=== PATIENT | female | born 1990 | race Caucasian/White ===

== ENCOUNTER 2023-12-12 01:32 | Inpatient (IN) ==
[2023-12-12] MEDS ORDERED: OXYTOCIN 30 UNITS/NSS 30 UNITS/500 ML BAG IV PRN (02:32)
[2023-12-12] MEDS ORDERED: LIDOCAINE 1% LOCAL 20 ML VIAL INFIL PRN (02:32)
[2023-12-12 03:18] LABS: Hematocrit (blood only) 33.2 % (37.0-47.0); Mean Corpuscular Hemoglobin 29.8 pg (25.0-34.0); Mean Corpuscular Hgb Conc 33.1 g/dL (32.0-36.0); Platelet Count 148 K/uL (130-400); RDW Coefficient of Variation 13.5 % (11.5-14.5); RDW Standard Deviation 44.8 fL (36.4-46.3); Red Blood Count 3.69 M/uL (4.20-5.40); White Blood Count 10.14 K/ul (4.8-10.8)
[2023-12-12] MEDS: LACTATED RINGER'S 1,000 ML IV PRN (06:09)
--- NOTE | 2023-12-12 06:53 | Anesthesiology Consultation ---
Date of Service December 12, 2023 Assessment & Plan Chart Review Chart Review: Acceptable Risk for Surgery Consults Requested none History Height/Weight Height: 5 ft 3 in Weight: 69.853 kg Allergies Allergy/AdvReac Type Severity Reaction Status Date / Time No Known Allergies Allergy Verified 12/12/23 01:53 Medications Home Medications Medication Instructions Recorded Confirmed Last Taken metoprolol tartrate 25 mg tablet 25 mg PO DAILY 12/12/23 12/12/23 12/11/23 [id number] 1 mg 1 tab PO DAILY 12/12/23 12/12/23 12/11/23 tablet Active Medications Generic Name Dose Route Start Last Admin Trade Name Freq PRN Reason Stop Dose Admin Lactated Ringer's 1,000 mls @ 125 mls/hr 12/12/23 02:32 12/12/23 06:09 Lr IV 12/14/23 02:31 999 mls/hr .Q8H PRN Administration L&D Protocol Protocol Past Medical History Medical History (Updated 12/12/23 @ 01:53 by Danica Helms RN) Heart palpitations Past Family History Family History Mother Thyroid disease Celiac disease Father Thyroid disease Denies family history of Ovarian cancer Prostate cancer Myocardial infarction Breast cancer Colorectal cancer Social History Smoking Status: Never smoker Do You Dip or Chew Tobacco: No Hx Alcohol Use: No Hx Substance Use: No Physical Exam Vital Signs Last Vital Signs Temp 36.6 C 12/12/23 06:20 Pulse 61 12/12/23 06:49 Resp 18 12/12/23 06:20 BP 122/66 12/12/23 06:21 Pulse Ox 99 12/12/23 06:49 O2 Del Method Room Air 12/12/23 01:58 Testing Laboratory Results 12/12/23 02:47
[2023-12-12] MEDS: LIDOCAINE 2%/EPINEPHRINE 1:200,000 20 ML PF ONE (07:12)
[2023-12-12] MEDS: fentANYL 2 MCG/ML BUPIVacaine 0.125%-NSS 100ML BAG ONE (07:12)
[2023-12-12] MEDS ORDERED: diphenhydrAMINE 50 MG/ML VIAL IV PRN (07:19)
[2023-12-12] MEDS ORDERED: BUPIVACAINE 0.25% PF 30 ML VIAL EPI PRN (07:19)
[2023-12-12] MEDS ORDERED: ROPIVACAINE 0.5% PF 5 MG/ML 20 ML VIAL EPI PRN (07:19)
[2023-12-12] MEDS ORDERED: LIDOCAINE 2% MPF LOCAL 5 ML VIAL EPI PRN (07:19)
[2023-12-12] MEDS ORDERED: NALOXONE HCL 0.4 MG/1 ML VIAL/CARP IV PRN (07:19)
[2023-12-12] MEDS ORDERED: fentaNYL citrate PF 100 MCG/2 ML VIAL EPI PRN (07:19)
[2023-12-12] MEDS ORDERED: NALOXONE HCL 1 MG in SODIUM CHLORIDE 0.9% 1,000 ML IV PRN (07:19)
[2023-12-12] MEDS ORDERED: NALBUPHINE HCL 5 MG in SYRINGE 0 ML IV PRN (07:19)
[2023-12-12] MEDS ORDERED: fentANYL 2 MCG/ML BUPIVacaine 0.125%-NSS 100ML BAG EPI PRN (07:19)
[2023-12-12] MEDS ORDERED: ePHEDrine sulfate 50 MG/ML AMP IV PRN (07:19)
[2023-12-12] MEDS ORDERED: SODIUM CHLORIDE 0.9% PF INJ 10 ML VIAL EPI PRN (07:19)
--- NOTE | 2023-12-12 08:15 | History & Physical Report ---
Date of Service December 12, 2023 Assessment & Plan (1) Supervision of normal first : Plan: 33-year-old G1, P0 currently at 39 weeks 0 days gestational age with spontaneous rupture of membranes in early labor. 1. Fetus: Category 1 tracing 2. Labor: Currently spontaneous painful contractions. Will continue to monitor and augment if needed. 3. GBS: Negative. 4. Vitals: Within normal limits (2) SROM (spontaneous rupture of membranes): (3) Normal labor: History of Present Illness Primary Care Provider: MD Seth Merrill is a 33-year-old G1, P0 currently at 39 weeks 0 days gestational presents with spontaneous rupture membranes in early labor. Denies vaginal bleeding and reporting good movement. complicated by metoprolol use for heart palpitations. OB Labs: Blood Type O Positive 06/03/23 Antibody Screen NEGATIVE 06/03/23 Hemoglobin 10.8 g/dl (12.0-16.0) L 09/29/23 Hematocrit 32.2 % (37.0-47.0) L 09/29/23 Mean Corpuscular Volume 87.6 fL (80.0-100.0) 06/03/23 Platelet Count 237 K/uL (130-400) 06/03/23 Rubella IgG Antibody Equivocal (Immune) L 06/03/23 Rapid Plasma Reagin Nonreactive (Nonreactive) 06/03/23 Hepatitis B Surface Antigen. NON-REACTIVE (NON-REACTIVE) 06/03/23 Hepatitis C Antibody (EIA) NON-REACTIVE (NON-REACTIVE) 06/03/23 HIV (1&2) Ag and Ab Confirmation NON-REACTIVE (NON-REACTIVE) 06/03/23 Glucose 1 Hour 50 gm Load 143 mg/dl (70-130) H 09/29/23 OB Optional Labs: Chlamydia trachomatis RNA Not Detected (NotDetected) 06/03/23 Neisseria gonorrhoeae RNA Not Detected (NotDetected) 06/03/23 Thyroid Stimulating Hormone (TSH) 1.797 uIu/ml (0.300-4.500) 06/03/23 Labs Reviewed: cfdna-low risk--mln declined msafp smp Allergies Allergy/AdvReac Type Severity Reaction Status Date / Time No Known Allergies Allergy Verified 12/12/23 01:53 Home Medications Medication Instructions Recorded Confirmed Type metoprolol tartrate 25 mg tablet 25 mg PO DAILY 12/12/23 12/12/23 History [id number] 1 mg 1 tab PO DAILY 12/12/23 12/12/23 History tablet Patient History Medical History (Updated 12/12/23 @ 08:13 by Esteban Hopson MD) Heart palpitations Family History Mother Thyroid disease Celiac disease Father Thyroid disease Denies family history of Ovarian cancer Prostate cancer Myocardial infarction Breast cancer Colorectal cancer Social History Smoking Status: Never smoker Do You Dip or Chew Tobacco: No; Hx Alcohol Use: No Hx Substance Use: No Preferred Language: Armenian Communication Ability: Effective Stakeholder Manager Required: No Beliefs That Will Affect Care: None marital status: marital status details: Frankie Mullins # [phone] Current Living Situation: Spouse Current Living Situation Comment: apartment with current occupational status: unemployed Other Information That Helps Us Care for You: No Feels Safe at Home: Yes Safety Concerns: Feels Safe At This Time Assistive Devices: None Physical Exam Genitourinary: OB Exam Abdomen: + vertex Manual OB Exam: + cervical dilation (1.5), + cervical effacement 80%, + station -1 and + amniotic fluid (Grossly ruptured) clear OB Exam Monitor Tracing: + external FHT monitor used, + external uterine monitor used, + category I and + normal FHT variability Results & Data Vital Signs (Past 12 Hours) Vital Signs Temp Pulse Resp BP O2 Del Method 12/12/23 01:58 36.6 C 18 Room Air 12/12/23 01:48 36.6 C 67 18 119/78 Coding Level of Care Code None Diagnoses Encounter for supervision of normal first in third trimester Z34.03 Trimester: third trimester SROM (spontaneous rupture of membranes) Normal labor O80; Z37.9 (1) Supervision of normal first Trimester: third trimester Qualified Code(s): Z34.03 - Encounter for supervision of normal first , third trimester
--- NOTE | 2023-12-12 08:16 | Labor Progress Brief Note ---
Date of Service December 12, 2023 Subjective Reason For Note: Routine Evaluation Assessment & Plan (1) Supervision of normal first : Plan: 33-year-old G1, P0 currently at 39 weeks 0 days gestational age with spontaneous rupture of membranes in early labor. 1. Fetus: Category 1 tracing 2. Labor: Progressing well. Will continue to monitor and augment if needed. 3. GBS: Negative. 4. Vitals: Within normal limits Trimester: third trimester Qualified Code(s): Z34.03 - Encounter for supervision of normal first , third trimester (2) SROM (spontaneous rupture of membranes): (3) Normal labor: Admission and Anticipated Discharge Date Admission Date: December 12, 2023 Physical Exam Genitourinary: Manual OB Exam: + cervical dilation 7 cm, + cervical effacement 90%, + station 0 and + amniotic fluid clear OB Exam Monitor Tracing: + external FHT monitor used, + external uterine monitor used, + category I and + normal FHT variability Results & Data Vital Signs (Past 12 Hours) Vital Signs Temp Pulse Resp BP Pulse Ox O2 Del Method 12/12/23 08:11 71 105/54 L 12/12/23 08:09 68 100 12/12/23 08:04 83 100 12/12/23 07:59 74 100 12/12/23 07:54 83 100 12/12/23 07:50 72 111/57 L 12/12/23 07:49 77 100 12/12/23 07:45 61 117/57 L 12/12/23 07:44 61 100 12/12/23 07:40 65 115/56 L 12/12/23 07:39 63 100 12/12/23 07:35 62 122/60 12/12/23 07:34 64 99 12/12/23 07:30 65 118/56 L 12/12/23 07:29 66 99 12/12/23 07:28 65 119/57 L 12/12/23 07:26 63 124/62 12/12/23 07:24 70 125/61 100 12/12/23 07:22 67 125/62 12/12/23 07:20 67 127/63 12/12/23 07:19 63 100 12/12/23 07:18 87 135/71 12/12/23 07:17 36.8 C 12/12/23 07:16 70 126/65 12/12/23 07:14 100 12/12/23 07:14 81 12/12/23 07:14 78 124/64 12/12/23 07:12 65 130/62 12/12/23 07:10 84 126/70 12/12/23 07:09 76 97 12/12/23 07:08 67 129/72 12/12/23 07:06 69 131/69 12/12/23 07:04 71 100 12/12/23 06:59 77 100 12/12/23 06:57 78 92 12/12/23 06:54 84 98 12/12/23 06:49 61 99 12/12/23 06:44 60 99 12/12/23 06:39 67 100 12/12/23 06:34 74 100 12/12/23 06:29 61 99 12/12/23 06:24 67 99 12/12/23 06:21 67 122/66 12/12/23 06:20 18 12/12/23 06:20 36.6 C 18 12/12/23 06:19 64 100 12/12/23 03:54 36.7 C 56 L 18 127/71 12/12/23 01:58 36.6 C 18 Room Air 12/12/23 01:48 36.6 C 67 18 119/78 Coding Level of Care Code None Diagnoses Encounter for supervision of normal first in third trimester Z34.03 Trimester: third trimester SROM (spontaneous rupture of membranes) Normal labor O80; Z37.9
[2023-12-12] MEDS: ePHEDrine sulfate 50 MG/ML AMP ONE (08:32)
[2023-12-12] MEDS: BUPIVACAINE 0.25% PF 30 ML VIAL ONE (08:32)
[2023-12-12] MEDS: SODIUM CHLORIDE 0.9% PF INJ 10 ML VIAL ONE (08:32)
[2023-12-12] MEDS: fentaNYL citrate PF 100 MCG/2 ML VIAL ONE (08:32)
[2023-12-12] MEDS: fentaNYL citrate PF 100 MCG/2 ML VIAL EPI STA (08:33)
[2023-12-12] MEDS: BUPIVACAINE 0.25% PF 30 ML VIAL EPI STA (08:33)
[2023-12-12] MEDS: LIDOCAINE 2%/EPINEPHRINE 1:200,000 20 ML PF EPI STA (08:33)
[2023-12-12] MEDS: SODIUM CHLORIDE 0.9% PF INJ 10 ML VIAL EPI STA (08:33)
[2023-12-12] MEDS: miSOPROStoL 200 MCG TAB ONE (10:44)
--- NOTE | 2023-12-12 10:48 | Delivery Summary ---
Vaginal Delivery Summary Date of Service December 12, 2023
--- NOTE | 2023-12-12 10:51 | Delivery Summary ---
Vaginal Delivery Summary Date of Service December 12, 2023 Vaginal Delivery Summary DIAGNOSES: 1. Brennan intrauterine at 39w0d gestation. 2. Spontaneous onset of labor. 3. Group B Streptococcus Neg. PROCEDURE: Spontaneous vaginal delivery and repair of second degre laceration. SURGEON: Arielle Lanza MD. GORE SEAMER: None. ESTIMATED BLOOD LOSS: 500 mL. COMPLICATIONS: None. PLACENTA: Spontaneous and intact with a 3-vessel cord. DISPOSITION: Stable to labor and delivery. DESCRIPTION: The patient pushed well and brought the head to in DOA position. The infant's head was allowed to deliver with contraction force and no further active pushing, with the perineum protected during this time. There was one loop of nuchal cord reduced on the perineum. The right shoulder was anterior. The shoulders and body delivered without any difficulty, and the infant was placed on the maternal abdomen. It was vigorous and moving all extremities, and making respiratory efforts. The cord was doubly clamped by the MD and then cut by the FOB. The placenta delivered spontaneously and was noted to be intact and with a 3VC. The cervix, vagina and perineum were examined and were found to have a second-degree laceration which was repaired in the usual manner using vicryl suture, including a crown stitch to rebuild the perineal body. A rectal exam confirmed no injury or suture. The fundus was firm and lochia minimal immediately after delivery, but within a few minutes additional lochia was noted, so 1000mcg rectal cytotec were placed. Fundus remained firm and lochia slowed as expected. [facility] Vaginal Delivery Charge Vaginal Delivery Codes: 91347 global code for the antepartum, delivery, and post-
[2023-12-12] MEDS ORDERED: oxyCODONE/ACETAMINOPHEN 5mg/325mg TAB PO PRN (10:54)
[2023-12-12] MEDS ORDERED: HYDROCORTISONE ACETATE 25 MG SUPP PR PRN (10:54)
[2023-12-12] MEDS ORDERED: ACETAMINOPHEN 325 MG TAB PO PRN (10:54)
--- NOTE | 2023-12-12 11:03 | Anesthesia Procedure Note ---
Date of Service December 12, 2023 Anesthesia Post Epidural Note Vital Signs Vital Signs: Temp Pulse Resp BP Pulse Ox O2 Del Method 36.8 C 91 H 18 124/80 97 Room Air 12/12/23 07:17 12/12/23 10:55 12/12/23 06:20 12/12/23 10:55 12/12/23 10:24 12/12/23 01:58 Pain Intensity Bilateral Anterior Abdomen: Pain Intensity: 0 Notes Mental Status: alert / awake / arousable and participated in evaluation Nausea / Vomiting: adequately controlled Pain: adequately controlled Airway Patency, RR, SpO2: stable & adequate BP & HR: stable & adequate Hydration State: stable & adequate Neuraxial Anesthesia: was administered and sensory block is resolving Anesthetic Complications: no major complications apparent and Pt Satisfied with anesthetic care Epidural: Removed without complications and With tip intact
[2023-12-12] MEDS: DIPHTHER/TETAN/PERTUS Vaccine (Tdap, Adol/Adult) 0.5mL IM ONE (11:17)
[2023-12-12] MEDS: BENZOCAINE 20% SPRY 85 APPLN/85 GM CAN EXT PRN (16:45)
[2023-12-12] MEDS: IBUPROFEN 600 MG TAB PO PRN (16:46)
[2023-12-12] MEDS: DOCUSATE SODIUM 100 MG CAP PO SCH (21:16)
[2023-12-13] MEDS ORDERED: Nursing to Pharmacy Communication SCH (02:45)
[2023-12-13 06:42] LABS: Hematocrit (blood only) 30.4 % (37.0-47.0); Mean Corpuscular Hemoglobin 30.2 pg (25.0-34.0); Mean Corpuscular Hgb Conc 32.9 g/dL (32.0-36.0); Mean Corpuscular Volume 91.8 fL (80.0-100.0); Mean Platelet Volume 13.1 fL (9.4-12.4); Platelet Count 169 K/uL (130-400); RDW Coefficient of Variation 13.8 % (11.5-14.5); RDW Standard Deviation 46.2 fL (36.4-46.3); Red Blood Count 3.31 M/uL (4.20-5.40); White Blood Count 20.42 K/ul (4.8-10.8)
--- NOTE | 2023-12-13 08:10 | Obstetrical Progress Note ---
Date of Service December 13, 2023 Assessment & Plan (1) state: Routine PPD#1 care Subjective Ambulation: ambulating normally Voiding: no voiding problems Passing Gas:: Yes Diet Tolerance:: regular diet Lochia:: Small Feeding Type:: breast feeding Physical Exam Constitutional WD/WN, vitals as above Eyes PERRL, conjunctivae normal, anicteric sclerae Neck normal visual inspection Respiratory normal respiratory effort and able to speak in complete sentences; no respiratory distress and no labored breathing Cardiovascular Rate/Rhythm: regular rate and regular rhythm Extremities: no edema Chest (Breasts) Chest: normal inspection of chest Gastrointestinal (Abdomen) Inspection/Auscultation: abdomen normal to inspection Soft, postgravid Psychiatric A+Ox3, euthymic affect Genitourinary OB Exam Abdomen: + fundal height Fundus: + firm and + relation to umbilicus (fundus just below umbilicus); not tender Results & Data Vital Signs (Past 12 Hours) Vital Signs Temp Pulse Resp BP Pulse Ox O2 Del Method 12/13/23 03:02 97.9 F 66 18 116/66 98 Room Air 12/13/23 00:47 98.2 F 66 18 136/76 100 Room Air 12/12/23 21:20 98.1 F 64 18 112/67 99 Room Air
[2023-12-13] MEDS: PRENATAL VITAMIN 1 TAB PO SCH (08:53)
[2023-12-13] MEDS ORDERED: METOPROLOL TARTRATE 25 MG TAB PO SCH (09:00)
[2023-12-13] MEDS: METOPROLOL SUCC 25MG EXT REL TAB PO SCH (20:14)
--- NOTE | 2023-12-14 05:59 | Obstetrical Progress Note ---
Date of Service December 14, 2023 Assessment & Plan (1) Encounter for care and examination after delivery: Plan: 33 yo post day 2 Vital signs reviewed Rubella immune Pain well controlled with ibuprofen Continue ambulation Encourage Discharge home today, instructions discussed Admission and Anticipated Discharge Date Admission Date: December 12, 2023 Supervising Physician Co-Signing Physician Notes Resident Physician Supervision Note: I interviewed and examined the patient. Discussed with Dr. Sotelo and agree with findings and plan as documented in the note. Any exceptions or clarifications are listed here: [ ] Documented By: Arielle Lanza MD, FACOG Subjective 33 yo post- day 1 s/p Ambulation: ambulating normally Voiding: no voiding problems Passing Gas:: Yes Diet Tolerance:: regular diet Lochia:: Small Feeding Type:: breast feeding Resting comfortably this AM in NAD. Denies MERAZ, CP, SOB, N/V/D, LE pain/swelling. Review of Systems Review of Systems: All systems reviewed & are unremarkable except as noted in HPI & below Physical Exam Physical Exam: General: patient resting comfortably, NAD, non-toxic in appearance, AA&O x 4, answers questions appropriately. Skin: warm, dry, intact HEENT: NC/AT, anicteric sclera, conjunctiva without injection, moist mucus membranes. Heart: +S1/S2, regular, no m/r/g Lungs: equal air entry bilaterally, no rales/rhonchi/wheezes Abd: +BS, soft, NT/ND, uterine fundus firm at umbilicus Ext: warm, no clubbing/cyanosis or edema, Derrek's neg. Neuro: nonfocal, patient AA&O x 4, speech intact, no facial droop, moving all extremities on command. Results & Data Vital Signs (Past 12 Hours) Vital Signs Temp Pulse Resp BP Pulse Ox O2 Del Method 12/14/23 01:04 36.8 C 76 14 117/72 Room Air 12/13/23 19:25 36.7 C 72 16 114/72 100 Room Air Resident Activity Tracking Resident Involvement: Resident Care Provided Care Provided: OB Delivery
[2023-12-14 06:16] LABS: Hematocrit (blood only) 26.7 % (37.0-47.0)
== END 2023-12-14 12:48 | disposition home or self-care (01) | DRG 807 ==
LOC: OPB 01:32 → 4S1 01:36 → 4E2 15:03